=== PATIENT | female | born 1935 ===

== ENCOUNTER 2023-09-30 11:11 | Inpatient (IN) ==
[~2023-09-30 11:11] MED LIST: Metoclopramide 5 MG/ML VIAL (10 mg) IV PRN; NS 0.45% 1000 ml BAG 1,000 ML IV SCH; Naloxone 0.4 mg VIAL 0.4 mg/ml 1 ml VIAL IV PRN; Ondansetron 4 mg VIAL 2 MG/ML 2 ml VIAL IV PRN; fentaNYL 100 mcg/2 ml 50 MCG/ML VIAL IV PRN
[2023-09-30] MEDS ORDERED: ROPIVACAINE 5 MG/ML 30 ML BTL (0.5%) ONE (12:07)
[2023-09-30 12:32] LABS: Rapid COVID-19 Molecular Undetected (Undetected)
[2023-09-30] MEDS ORDERED: Propofol 10 MG/ML 20 ML BTL ONE ×2 (12:45→15:18)
[2023-09-30] MEDS ORDERED: Tranexamic Acid 1 GM/100ML BAG 2,000 MG/200 ML BAG IV ONE (12:49)
[2023-09-30] MEDS ORDERED: ceFAZolin 2 GM PREMIX 2 GM/50 ML BAG ONE (12:50)
[2023-09-30] MEDS ORDERED: Buffered Lidocaine 1% SYRIN 1 ml ONE (12:50)
[2023-09-30] MEDS ORDERED: fentaNYL 100 mcg/2 ml 50 MCG/ML VIAL ONE (13:09)
[2023-09-30] MEDS ORDERED: Lidocaine 2% PF 5 ML VIAL ONE (13:10)
[2023-09-30] MEDS ORDERED: Phenylephrine IV 10 MG/ML 1 ml VIAL ONE (13:10)
[2023-09-30] MEDS ORDERED: Morphine 2 MG/ML SYRINGE IV PRN (15:03)
[2023-09-30] MEDS ORDERED: Ondansetron ODT 4 mg TAB 4 MG TAB PO PRN (15:03)
[2023-09-30] MEDS ORDERED: Magnesium Hydroxide LIQ 30 ML UDC PO PRN (15:03)
[2023-09-30] MEDS ORDERED: Calcium Carb (TUMS) 500 mg CHEW TAB PO PRN (15:03)
[2023-09-30] MEDS ORDERED: Lactulose 30 ml UDC PO PRN (15:03)
[2023-09-30] MEDS ORDERED: Ondansetron 4 mg VIAL 2 MG/ML 2 ml VIAL IV PRN (15:03)
[2023-09-30] MEDS ORDERED: Ondansetron 4 mg VIAL 2 MG/ML 2 ml VIAL ONE (15:53)
[2023-09-30] MEDS ORDERED: Dexamethasone IV 4 MG/ML VIAL 1 ml VIAL ONE (15:53)
[2023-09-30] MEDS ORDERED: ceFAZolin 2 GM in NS PREMIX 2 GM/100 ML BAG IVPB SCH (16:00)
[2023-09-30] MEDS: LACTATED RINGERS 1000 ML BAG IV SCH (18:30)
[2023-09-30] MEDS: Acetaminophen IV 1 GM/100ML 1,000 MG/100 ML BAG IV ONE (18:56)
[2023-09-30] MEDS: Lactated Ringers 1000 ml BAG 1,000 ML IV SCH (18:57)
[2023-09-30] MEDS: Scopolamine 1 mg/72hr PATCH TRANSDERM ONE (18:57)
[2023-09-30] MEDS: Buffered Lidocaine 1% SYRIN 1 ml INTRADERM ONE (18:57)
[2023-09-30] MEDS ORDERED: Heparin 5000 UNITS/ML 1 mL VIAL IV SCH (20:00)
[2023-09-30 20:29] LABS: ABS Lymphocytes 0.3 10^3/uL (1.0-4.8); ABS Monocytes 0.3 10^3/uL (0.0-0.9); ABS Neutrophils 12.3 10^3/uL (1.5-7.6); ABS Nucleated RBC 0.01 10^3/ul; Hemoglobin 12.4 g/dL (11.5-14.3); Lymphocyte % 2.7 %; Mean Corpuscular Hemoglobin 30.8 pg (27-33); Mean Corpuscular Hgb Conc 32.7 g/dL (31-36); Mean Platelet Volume 9.1 fL (7.5-11.2); Platelet Count 192 10^3/uL (150-450); Red Blood Count 4.04 10^6/uL (3.63-4.92); Red Cell Distribution Width 13.9 % (12-17)
[2023-09-30 20:47] LABS: Creatinine, Serum 0.54 mg/dL (0.51-0.95); eGFR CKD-EPI 89.6 (>60)
[2023-09-30] MEDS: Magnesium Hydroxide LIQ 30 ML UDC PO SCH (21:26)
[2023-09-30] MEDS: Heparin DRIP 25,000 UNITS BAG 25,000 UNITS/250 ML BAG IV SCH (23:26)
[2023-09-30] MEDS: ceFAZolin 2 GM PREMIX 2 GM/50 ML BAG IV SCH (23:58)
[2023-10-01 06:02] LABS: Hematocrit 31.2 % (35-45); Hemoglobin 10.6 g/dL (11.5-14.3); Mean Platelet Volume 9.2 fL (7.5-11.2); Platelet Count 170 10^3/uL (150-450)
[2023-10-01 06:05] LABS: INR 1.13 (0.83-1.13)
[2023-10-01 07:04] LABS: Activated Partial Thrombo Time 163.6 seconds (26.0-38.0)
[2023-10-01 07:46] LABS: Calcium 8.3 mg/dL (8.6-10.3); Creatinine, Serum 0.64 mg/dL (0.51-0.95); Potassium 4.3 mmol/L (3.5-5.0)
[2023-10-01] MEDS: Vitamin THERAPEUTIC TAB PO SCH (10:31)
[2023-10-01] MEDS: NS 0.9% 1000 ml BAG 1,000 ML IV ONE (11:03)
[2023-10-01] MEDS ORDERED: Enoxaparin 40 MG/0.4 ML SYR SUBCUT SCH (12:00)
[2023-10-01 13:16] LABS: Hematocrit 26.5 % (35-45); Hemoglobin 8.9 g/dL (11.5-14.3)
[2023-10-01 17:28] LABS: Hematocrit 27.1 % (35-45); Hemoglobin 8.7 g/dL (11.5-14.3)
[2023-10-01] MEDS: Warfarin DAILY REMINDER **NOTE FOLLOW UP SCH (20:16)
[2023-10-02 04:48] LABS: INR 2.03 (0.83-1.13)
[2023-10-02 04:52] LABS: Hematocrit 20.3 % (35-45); Hemoglobin 6.8 g/dL (11.5-14.3); Mean Platelet Volume 9.2 fL (7.5-11.2); Platelet Count 135 10^3/uL (150-450)
[2023-10-02 08:06] LABS: Activated Partial Thrombo Time 194.9 seconds (26.0-38.0)
[2023-10-02 08:22] LABS: Hematocrit 17.3 % (35-45)
[2023-10-02 14:20] LABS: Hematocrit 21.9 % (35-45); Hemoglobin 7.3 g/dL (11.5-14.3)
[2023-10-03 06:47] LABS: Hematocrit 20.6 % (35-45); Hemoglobin 7.1 g/dL (11.5-14.3); Mean Corpuscular Hemoglobin 30.9 pg (27-33); Mean Corpuscular Hgb Conc 34.3 g/dL (31-36); Mean Corpuscular Volume 90.2 fL (80-97); Mean Platelet Volume 9.5 fL (7.5-11.2); Platelet Count 147 10^3/uL (150-450); Red Blood Count 2.29 10^6/uL (3.63-4.92); Red Cell Distribution Width 17.5 % (12-17); White Blood Count 11.1 10^3/uL (3.8-11.8)
[2023-10-03 06:55] LABS: INR 2.3 (0.83-1.13)
[2023-10-03 07:30] LABS: Calcium 8.1 mg/dL (8.6-10.3); Potassium 4.6 mmol/L (3.5-5.0)
[2023-10-03 08:06] LABS: Creatinine, Serum 0.77 mg/dL (0.51-0.95); eGFR CKD-EPI 75.1 (>60)
[2023-10-03] MEDS: Lactated Ringers 500 ml BAG 500 ML IV ONE (11:11)
[2023-10-03 17:02] LABS: Hematocrit 24.1 % (35-45); Hemoglobin 8.2 g/dL (11.5-14.3)
[2023-10-03 17:11] LABS: INR 2.15 (0.83-1.13)
[2023-10-03] MEDS: Warfarin DAILY REMINDER **NOTE FOLLOW UP SCH (17:27)
[2023-10-04 06:58] LABS: INR 1.72 (0.83-1.13)
[2023-10-04 07:05] LABS: Calcium 8.3 mg/dL (8.6-10.3); Creatinine, Serum 0.56 mg/dL (0.51-0.95); Potassium 5.1 mmol/L (3.5-5.0); eGFR CKD-EPI 88.8 (>60)
[2023-10-04 07:20] LABS: ABS Eosinophils 0.1 10^3/uL (0.0-0.5); ABS Lymphocytes 0.5 10^3/uL (1.0-4.8); ABS Monocytes 0.9 10^3/uL (0.0-0.9); ABS Neutrophils 7.6 10^3/uL (1.5-7.6); ABS Nucleated RBC 0.01 10^3/ul; Eosinophil % 0.7 %; Hematocrit 24.8 % (35-45); Hemoglobin 8.7 g/dL (11.5-14.3); Lymphocyte % 5.8 %; Mean Corpuscular Hgb Conc 34.9 g/dL (31-36); Mean Corpuscular Volume 88.8 fL (80-97); Mean Platelet Volume 9.2 fL (7.5-11.2); Nucleated Red Blood Cells % 0.1 %/100WBC (0.0-0.8); Platelet Count 157 10^3/uL (150-450); Red Cell Distribution Width 17.1 % (12-17); White Blood Count 9.1 10^3/uL (3.8-11.8)
[2023-10-05 08:44] LABS: ABS Eosinophils 0.1 10^3/uL (0.0-0.5); ABS Lymphocytes 0.6 10^3/uL (1.0-4.8); ABS Monocytes 1.1 10^3/uL (0.0-0.9); ABS Neutrophils 7.5 10^3/uL (1.5-7.6); ABS Nucleated RBC 0.01 10^3/ul; Eosinophil % 0.7 %; Hematocrit 24.5 % (35-45); Hemoglobin 8.4 g/dL (11.5-14.3); Lymphocyte % 6.5 %; Mean Corpuscular Hemoglobin 31.3 pg (27-33); Mean Corpuscular Hgb Conc 34.3 g/dL (31-36); Mean Corpuscular Volume 91.4 fL (80-97); Mean Platelet Volume 8.4 fL (7.5-11.2); Nucleated Red Blood Cells % 0.1 %/100WBC (0.0-0.8); Platelet Count 204 10^3/uL (150-450); Red Blood Count 2.68 10^6/uL (3.63-4.92); Red Cell Distribution Width 16.3 % (12-17); White Blood Count 9.2 10^3/uL (3.8-11.8)
[2023-10-05 08:54] LABS: INR 1.51 (0.83-1.13)
[2023-10-05] MEDS: Enoxaparin 60 MG/0.6 ML SYR SUBCUT SCH (17:51)
[2023-10-06 08:41] LABS: Hematocrit 23.5 % (35-45)
[2023-10-06 08:51] LABS: INR 1.62 (0.83-1.13)
[2023-10-06 08:58] LABS: Calcium 7.8 mg/dL (8.6-10.3); Creatinine, Serum 0.53 mg/dL (0.51-0.95)
[2023-10-06 09:31] LABS: Ferritin 90.7 ng/mL (11-307)
[2023-10-07 06:36] LABS: INR 1.48 (0.83-1.13)
[2023-10-07 06:53] LABS: Hematocrit 25.1 % (35-45); Hemoglobin 8.6 g/dL (11.5-14.3)
[2023-10-07 11:01] VITALS: BP 110/52
== END 2023-10-07 13:00 | DRG 470 ==
LOC: AA 11:11 → INTOOBSV 11:11 → SSU 15:03
PROVIDERS: ADMIT Orthopaedic Surgery Adult Reconstructive Orthopaedic Surgery; ATTEND Orthopaedic Surgery Adult Reconstructive Orthopaedic Surgery